=== PATIENT | male | born 2000 | race African-American/Black ===

== ENCOUNTER 2021-01-24 07:56 | Emergency (ER) | payer OTHER ==
[2021-01-24 08:30] LABS: #Basophils 0.1 thou/uL (0.0-0.2); #Monocytes 0.3 thou/uL (0.11-0.59); #Neutrophils 2.5 thou/uL (1.40-6.50); %Basophils 1.3 % (0.0-1.0); %Eosinophils 0.6 % (0.0-10.0); %Lymphocytes 40.6 % (28.0-48.0); %Monocytes 6.9 % (0.0-4.0); %Neutrophils 50.6 % (31.0-61.0); Hemoglobin 14.6 g/dL (14.0-18.0); Mean Corpuscular HGB CONC 32.8 g/dL (32.0-36.0); Mean Corpuscular Hemoglobin 28.6 pg (25.0-35.0); Mean Corpuscular Volume 87.1 fL (78.0-98.0); Mean Platelet Volume 8.9 fL (7.4-10.4); Platelet Count 247 thou/uL (130-400); RBC Distribution Width 12.2 % (11.5-14.5); Red Blood Cell (RBC) Count 5.11 mill/uL (4.00-5.20)
[2021-01-24 08:38] LABS: ALT (SGPT) 11 U/L (8-55); AST (SGOT) 19 U/L (10-45); Albumin 4.7 g/dL (3.5-5.0); Alkaline Phosphatase 50 U/L (50-130); Anion Gap 19 mmol/L (10-20); BUN (Urea Nitrogen) 8 mg/dL (8.4-21.0); Bilirubin, Total 0.3 mg/dL (0.2-1.2); Calc. Creatinine Clearance 0 mL/min (70-130); Calcium 9.5 mg/dL (7.8-10.44); Carbon Dioxide 20 mmol/L (22-29); Chloride 104 mmol/L (98-107); Globulin 2.7 g/dL (2.4-3.5); Glucose 152 mg/dL (70-105); Potassium 3.8 mmol/L (3.5-5.1); Protein, Total 7.4 g/dL (6.0-8.3); Sodium 139 mmol/L (136-145)
[2021-01-24] MEDS ORDERED: Morphine 2 MG/ML VIAL ONE (08:38)
[2021-01-24] MEDS ORDERED: Sodium Chloride 0.9% 1,000 ML ONE (08:39)
[2021-01-24] MEDS ORDERED: Promethazine HCl 25 MG/ML VIAL ONE (08:39)
[2021-01-24] MEDS ORDERED: Ondansetron PF 4 MG/2 ML Vial ONE (08:53)
[2021-01-24 09:02] LABS: Bilirubin Negative (Negative); Blood, Urine Negative (Negative); Clarity Clear (Clear); Glucose, Urine (Dipstick) Negative (Negative); Ketone, Urine Trace mg/dL (Negative); Leukocyte Negative (Negative); Nitrite Negative (Negative); Protein, Urine (Dipstick) 30 mg/dL (Neg-Trace); Specific Gravity, Urine 1.021 (1.002-1.036)
[2021-01-24 09:03] LABS: Bacteria/HPF Rare-Few HPF (None Seen); RBC/HPF 0-3 HPF (0-3); Squamous Epithelial 0-3 HPF (0-3); WBC/HPF 0-3 HPF (0-3)
[2021-01-24 09:12] LABS: Amphetamine Not Detected (NotDetected); Barbiturates Screen Not Detected (NotDetected); Benzodiazepine Screen Not Detected (NotDetected); Cocaine Metabolite Screen Not Detected (NotDetected); Medtox Control Line Valid? VALID (VALID); Methadone Not Detected (NotDetected); Methamphetamine Not Detected (NotDetected); Opiate Screen Not Detected (NotDetected); Oxycodone Screen Not Detected (NotDetected); Phencyclidine (PCP) Not Detected (NotDetected); THC/Cannabinoid Screen Detected (NotDetected); Tricyclic Screen Not Detected (NotDetected)
== END 2021-01-24 09:43 | disposition home or self-care (01) ==
LOC: MADERS 07:56
DX: R56.9 Unspecified convulsions (principal); F17.210 Nicotine dependence, cigarettes, uncomplicated
CPT/HCPCS: 70450; 80053; 80306; 81003; 81015; 84146; 85025; 96374; 96375; J2270; J2405; J2550; J7050

== ENCOUNTER 2022-12-30 12:16 | Emergency (ER) | payer OTHER | END 2022-12-30 12:54 | disposition home or self-care (01) | LOC: MADERS 12:16 | DX: G40.909 Epilepsy, unspecified, not intractable, without status epilepticus (principal); F17.210 Nicotine dependence, cigarettes, uncomplicated | CPT/HCPCS: 36416; 99284 ==

== ENCOUNTER 2024-01-25 21:12 | Emergency (ER) | payer SELFPAY | END 2024-01-25 21:45 | disposition home or self-care (01) | LOC: MADERS 21:12 | DX: G40.909 Epilepsy, unspecified, not intractable, without status epilepticus (principal); F17.210 Nicotine dependence, cigarettes, uncomplicated; Z91.148 Patient's other noncompliance with medication regimen for other reason | CPT/HCPCS: 99283 ==

== ENCOUNTER 2024-06-21 22:26 | Emergency (ER) | payer OTHER, SELFPAY | END 2024-06-21 23:24 | disposition home or self-care (01) | LOC: MADERS 22:26 | DX: S40.021A Contusion of right upper arm, initial encounter (principal); G40.909 Epilepsy, unspecified, not intractable, without status epilepticus; F17.210 Nicotine dependence, cigarettes, uncomplicated; X58.XXXA Exposure to other specified factors, initial encounter | CPT/HCPCS: 99284 ==

== ENCOUNTER 2024-08-04 01:36 | Emergency (ER) | payer OTHER | END 2024-08-04 02:25 | LOC: MADERS 01:36 | DX: L30.4 Erythema intertrigo (principal); G40.909 Epilepsy, unspecified, not intractable, without status epilepticus; F17.210 Nicotine dependence, cigarettes, uncomplicated; F17.290 Nicotine dependence, other tobacco product, uncomplicated; Z79.899 Other long term (current) drug therapy | CPT/HCPCS: 99282 ==

== ENCOUNTER 2024-10-17 09:11 | Emergency (ER) | payer OTHER ==
[2024-10-17] MEDS ORDERED: Amoxicillin/Potassium Clav 875 MG TAB ONE (09:24)
[2024-10-17] MEDS ORDERED: Ibuprofen 600 MG TAB ONE (09:25)
== END 2024-10-17 10:30 | disposition home or self-care (01) ==
LOC: MADERS 09:11
DX: J02.9 Acute pharyngitis, unspecified (principal); H66.91 Otitis media, unspecified, right ear; F17.210 Nicotine dependence, cigarettes, uncomplicated
CPT/HCPCS: 87081; 87428; 87430; 99283

== ENCOUNTER 2025-04-24 07:03 | Emergency (ER) | payer BC, OTHER, SELFPAY ==
[2025-04-24] MEDS ORDERED: levETIRAcetam 500 MG (5 mL) VIAL ONE (07:33)
[2025-04-24 07:43] LABS: #Basophils 0.2 thou/uL (0.0-0.2); #Eosinophils 0.0 thou/uL (0.0-0.7); #Lymphocytes 4.5 thou/uL (1.20-3.40); #Monocytes 1.0 thou/uL (0.11-0.59); #Neutrophils 9.2 thou/uL (1.40-6.50); %Basophils 1.6 % (0.0-1.0); %Eosinophils 0.2 % (0.0-10.0); %Lymphocytes 30.2 % (21.0-51.0); %Monocytes 6.4 % (0.0-10.0); %Neutrophils 61.7 % (42.0-75.0); Hematocrit 47.9 % (42.0-52.0); Hemoglobin 15.8 g/dL (14.0-18.0); Mean Corpuscular Hemoglobin 29.0 pg (27.0-31.0); Mean Corpuscular Volume 88.4 fl (78.0-98.0); Platelet Count 333 10x3/uL (130-400); Red Blood Cell (RBC) Count 5.42 mill/uL (4.70-6.10); White Blood Cell (WBC) Count 14.8 10x3/uL (4.8-10.8)
[2025-04-24 07:56] LABS: Acetaminophen Less than 10 mcg/mL (Less than 10); Salicylate Less than 8.0 mg/dL (Less than 8.0)
[2025-04-24 07:58] LABS: ALT (SGPT) 20 U/L (Less than 45); AST (SGOT) 36 U/L (11-34); Albumin 5.5 g/dL (3.1-4.5); Alkaline Phosphatase 57 U/L (40-110); Anion Gap 33 mmol/L (10-20); BUN (Urea Nitrogen) 16 mg/dL (8.9-20.6); Bilirubin, Total 0.5 mg/dL (0.3-1.2); Calc. Creatinine Clearance 0 mL/min (70-130); Calcium 9.6 mg/dL (7.8-10.44); Chloride 103 mmol/L (98-107); Globulin 2.9 g/dL (2.4-3.5); Glucose 133 mg/dL (70-105); Potassium 3.5 mmol/L (3.5-5.1); Sodium 140 mmol/L (136-145)
[2025-04-24 08:05] LABS: Carbon Dioxide 8 mmol/L (22-29)
[2025-04-24 08:48] LABS: Acetaminophen Less than 10 mcg/mL (Less than 10); Salicylate Less than 8.0 mg/dL (Less than 8.0)
[2025-04-24 09:13] LABS: Bicarbonate (HCO3v) 20.7 mmol/L (22.0-28.0); CO2 Tension (PvCO2) 47.1 mmHg (42.0-51.0); Calcium, Ionized 1.17 mmol/L (1.15-1.33); Chloride 108 mmol/L (98-107); Hemoglobin - Calc 14.2 g/dL (14.0-18.0); Potassium 4.2 mmol/L (3.5-5.1); Sodium 137 mmol/L (138-145); T. Carbon Dioxide 22.2 mmol/L (22.0-28.0); vO2 Saturation-calc 94.7 % (60.0-85.0)
[2025-04-24 10:12] LABS: Cocaine Metabolite Screen Negative (Negative); THC/Cannabinoid Screen PRELIM POSITIVE (Negative); Tricyclic Screen Negative (Negative)
[2025-04-24] MEDS ORDERED: Acetaminophen 500 MG TAB ONE (10:46)
[2025-04-24] MEDS ORDERED: Ketorolac Tromethamine 30 MG (1 mL) VIAL ONE (10:46)
== END 2025-04-24 12:16 | disposition home or self-care (01) ==
LOC: MADERS 07:03
DX: G40.909 Epilepsy, unspecified, not intractable, without status epilepticus (principal); F90.9 Attention-deficit hyperactivity disorder, unspecified type; F17.210 Nicotine dependence, cigarettes, uncomplicated
CPT/HCPCS: 70450; 80053; 80306; 80307; 82330; 82803; 83605; 85025; 96372; 96374; 96375; J1630; J1885; J1953; J2060; J7030; J7050; J7120